=== PATIENT | female | born 1950 | race Caucasian/White ===

== ENCOUNTER → 2022-04-23 | Outpatient (CLI) | payer MEDICARE, MEDICAID ==
[~2022-04-23] MED LIST: BACL10TA2 PO; DALF10TA2 PO; HOME MED LIST COMPLETE! XX SCH; LIDOCAINE 1% MDV 20ML VIAL As Ordered ONE; OMEP1CAP71 PO; OXYB10TA23 PO; TERI14TA PO
[2022-04-23 11:30] VITALS: BP 171/73
== END ==
LOC: M IRPRO 08:04
PROVIDERS: ATTEND Internal Medicine Hematology & Oncology
DX: C34.91 Malignant neoplasm of unspecified part of right bronchus or lung (principal); J95.811 Postprocedural pneumothorax